=== PATIENT | male | born 1940 | race Caucasian/White ===

== ENCOUNTER 2020-08-21 09:09 | Inpatient (IN) ==
[2020-08-21] MEDS ORDERED: 0.9 % SODIUM CHLORIDE 1,000 ML IV ONE (09:33)
[2020-08-21] MEDS ORDERED: methylPREDNISolone SOD SUCC 125 MG/2 ML VIAL IV ONE (09:33)
[2020-08-21] MEDS ORDERED: TERBUTALINE 1 MG/ML VIAL SQ ONE (09:33)
--- NOTE | 2020-08-21 09:43 | Emergency Department Note ---
SOB HPI General Chief Complaint: Shortness of Breath/Dyspnea Stated Complaint: shortness of breath, possible covid Time Seen by Provider: 08/21/20 09:33 Source: patient Mode of arrival: wheelchair Limitations: no limitations History of Present Illness HPI Narrative: 79-year-old male comes in complaining of worsening shortness of breath x1 week. Denies fever chills nausea vomiting diarrhea trouble urinating. He does have known COPD and quit smoking 10 years ago or so. He does take inhalers as needed and is on apixaban. He has a known heart history with prior FL as well but is denying chest pain today. He is on oxygen 2 L nasal cannula at night but is currently hypoxic with saturations in the 80s-82% on arrival. Complains that he has significant shortness of breath with any exertion at all He was sent over by ABEL Rodrigues over at [facility]. I discussed the case with her prior to his arrival Related Data Home Medications Medication Instructions Recorded Confirmed albuterol sulfate 90 mcg/actuation 2 puff INHALATION QID PRN 06/24/19 05/05/20 aerosol inhaler apixaban 5 mg tablet 5 mg PO BID 06/29/19 05/05/20 multivitamin 1 tab PO QDAY 11/04/19 05/05/20 Previous Rx's Medication Instructions Recorded budesonide 0.5 mg/2 mL suspension 2 ml INHALATION BID #60 ml 12/22/19 for nebulization ipratropium 0.5 mg-albuterol 3 mg 3 ml INHALATION QID #180 ml 12/22/19 (2.5 mg base)/3 mL nebulization soln metformin 500 mg tablet 500 mg PO BID #180 tab 05/05/20 methocarbamol 750 mg tablet 750 mg PO QID PRN #120 tab 06/27/20 gabapentin 300 mg capsule 300 mg PO QID #120 cap 06/29/20 prednisone 5 mg tablet 5 mg PO QDAY #30 tab 06/29/20 atorvastatin 20 mg tablet 20 mg PO QHS #90 tab 07/10/20 sertraline 100 mg tablet 50 mg PO QAM #45 tab 08/01/20 fluticasone fur. 100 mcg-umeclid 1 inh INHALATION Q24H #90 each 08/08/20 62.5 mcg-vilant 25 mcg inhalat.powder losartan 50 mg tablet See Rx Instructions .ROUTE 08/10/20 .COMPLEX #90 tab Allergies Allergy/AdvReac Type Severity Reaction Status Date / Time Amoxicillin [From Augmentin] Allergy Unknown Unknown Verified 05/05/20 08:15 clavulanic acid Allergy Unknown Unknown Verified 05/05/20 08:15 [From Augmentin] tetanus immune globulin Allergy Unknown RASH Verified 05/05/20 08:15 [TETANUS IMMUNE GLOBULIN] Review of Systems ROS ROS Narrative: Narrative: All systems ED: reviewed and negative except as stated. PFSH Narrative Patient History Narrative: Narrative: Medical/Surgical/Family History All Active Problems (Updated 08/21/20 @ 11:40 by Ramy Cardoso MD) Acute exacerbation of chronic obstructive airways disease (Acute) Pneumonia (Acute) Cough (Acute) Weakness (Acute) Acute dyspnea (Acute) Epistaxis (Chronic) History of MRI (Chronic ~06/2013) MRSA pneumonia (Chronic) Peripheral vertigo (Chronic) AAA (abdominal aortic aneurysm) (Chronic) Cerumen impaction (Chronic) Pain in left knee (Chronic) Effusion of left knee (Chronic) Bronchitis (Chronic) Appetite loss (Chronic) No pertinent past surgical history (Chronic) History of [place] (myocardial infarction) (Chronic ~06/2013) Alcoholic (Chronic) Personal history of other disorder of urinary system (Chronic) Hypertension (Chronic) Neck pain (Chronic) Weight loss (Chronic) Fatigue (Chronic) Depression (Chronic) Urinary incontinence (Chronic) COPD (chronic obstructive pulmonary disease) (Chronic) Vertigo (Chronic) History of AAA (abdominal aortic aneurysm) repair (Chronic) Bradycardia (Chronic) Allergic rhinitis (Chronic) Hyperlipidemia (Chronic) Shoulder pain, right (Chronic) Lumbar disc disease (Chronic) Diabetes mellitus (Chronic) Benign essential tremor (Chronic) Medical History AAA (abdominal aortic aneurysm) (Chronic) Alcoholic (Chronic) quit 2012, quit smoking as well Allergic rhinitis (Chronic) Appetite loss (Chronic) Atrial fibrillation (Acute) Benign essential tremor (Chronic) Bradycardia (Chronic) chronic Bronchitis (Chronic) Cerumen impaction (Chronic) COPD (chronic obstructive pulmonary disease) (Chronic) Chest CT 04/26 PFT 04/26 Depression (Chronic) Diabetes mellitus (Chronic) Effusion of left knee (Chronic) Epistaxis (Chronic) Fatigue (Chronic) History of [place] (myocardial infarction) (Chronic ~06/2013) History of MRI (Chronic ~06/2013) previous infacrts History of rectal polyps (Acute) colonoscopy 2020 History of smoking (Chronic ~12/2015) Hyperlipidemia (Chronic) Hypertension (Chronic) Lumbar disc disease (Chronic) MRSA pneumonia (Chronic) Neck pain (Chronic) Pain in left knee (Chronic) Peripheral vertigo (Chronic) Personal history of other disorder of urinary system (Chronic) Shoulder pain, right (Chronic) Urinary incontinence (Chronic) Vertigo (Chronic) Weight loss (Chronic) Surgical History History of AAA (abdominal aortic aneurysm) repair (Chronic) No pertinent past surgical history (Chronic) Family History Brother Diabetes Father Diabetes Social History Smoking Status: Former smoker Alcohol Intake Frequency: former alcohol drinker Exam Narrative Narrative: Narrative: Thin male no acute distress resting. Alert oriented able to answer questions appropriately. No dysarthria or dyspnea with talking. Normocephalic atraumatic. Conjunctive are clear sclerae white nonicteric. No nasal discharge or congestion. Oropharynx pink and moist. Posterior pharynx is clear I do not see any erythema or exudate. Heart is regular rate and rhythm no murmur appreciated. Lungs are clear to auscultation bilaterally without wheezes rales rhonchi or respiratory distress. Abdomen is soft nontender nondistended. No peritoneal signs or guarding. No pedal edema. I do not see any cyanosis anywhere. Normal radial pulse General Limitations: no limitations Course Vital Signs Vital signs: Vital Signs Temperature 98.9 F 08/21/20 09:32 Pulse Rate 60 08/21/20 09:32 Respiratory Rate 22 08/21/20 09:32 Blood Pressure 134/64 08/21/20 09:32 Pulse Oximetry (%) 82 L 08/21/20 09:32 Temperature 98.9 F 08/21/20 09:32 Pulse Rate 58 L 08/21/20 10:02 Respiratory Rate 17 08/21/20 10:02 Blood Pressure 127/59 08/21/20 10:02 Pulse Oximetry (%) 96 08/21/20 10:02 [facility] MDM Narrative Medical decision making narrative: Narrative: COPD exacerbation plus or minus pneumonia or Covid or other respiratory virus or bacteria illness. Additionally he could have heart issues although he is not having chest pain at this time. He is now requiring 4 L of oxygen to keep saturations above 90% so he will require hospitalization Ordered work-up with laboratory ABG chest x-ray. Start treatment with terbutaline subcu Solu-Medrol IV and oxygen therapy. Covid testing ordered- with POC [place] Initial Covid testing was negative. Will order the cephalad test. Chest x-ray showed early infiltrate could be compatible with Covid but not pathognomonic. Left lower may be just bacterial EKG is unrevealing. ABG shows pH of 7.38 PCO2 43 PO2 95 on 4 L nasal cannula Laboratory most consistent with bacterial pneumonia. Will start Levaquin as he is allergic to penicillins. discussed with our hospitalist Dr. Enrico Arteaga (sp?), he will see the patient Lab Data Lab results reviewed: Yes I reviewed the patient's lab results. Result diagrams: 08/21/20 09:37 08/21/20 09:37 Labs: Lab Results 08/21/20 08/21/20 08/21/20 Range/Units 09:37 09:37 09:39 WBC 17.2 H (4.5-11.0) K/mcL RBC 4.24 L (4.50-5.90) M/mcL Hgb 13.6 (13.5-16.5) g/dL Hct 41.0 (41.0-55.0) % MCV 96.7 (80.0-100.0) fL MCH 32.1 (26.0-34.0) pg MCHC 33.2 (31.0-36.0) g/dL RDW 13.7 (11.5-14.5) % Plt Count 196 (140-440) K/mcL MPV 10.6 H (7.4-10.4) fL Neut % (Auto) 80.1 H (38.0-78.0) % Lymph % (Auto) 11.8 L (15.0-49.0) % [place] % (Auto) 7.7 (1.0-12.0) % Eos % (Auto) 0.1 (0.0-7.0) % Baso % (Auto) 0.3 (0.0-2.0) % Lymph # (Auto) 2.03 (1.50-4.80) K/mcL [place] # (Auto) 1.32 H (0.10-0.90) K/mcL Eos # (Auto) 0.01 (0.00-0.70) K/mcL Baso # (Auto) 0.05 (0.00-0.20) K/mcL Absolute Neutrophils 13.82 H (1.80-8.00) K/mcL VBG Lactic Acid 2.0 (0.5-2.0) mmol/L Sodium 139 (133-145) mmol/L Potassium 4.2 (3.3-5.1) mmol/L Chloride 98 (96-108) mmol/L Carbon Dioxide 21 L (22-30) mmol/L Anion Gap 20.0 H (8.0-16.0) BUN 21 (8-23) mg/dL Creatinine 1.2 (0.7-1.2) mg/dL GFR Calculation 56 Glucose 198 H (70-105) mg/dL Calcium 9.4 (8.6-10.4) mg/dL Magnesium 1.5 L (1.6-2.5) mg/dL Total Bilirubin 0.9 (0.1-1.0) mg/dL AST 11 (<40) U/L ALT 15 (<40) U/L Alkaline Phosphatase 73 (39-117) U/L Troponin T (<0.03) ng/mL NT-Pro-B Natriuret Pep 1040.0 H (<450.0) pg/mL Total Protein 7.2 (5.9-8.4) gm/dL Albumin 4.2 (3.2-5.2) gm/dL Globulin 3.0 (2.2-3.7) gm/dL Albumin/Globulin Ratio 1.4 (1.0-2.3) Lipase 23 (7-60) U/L Procalcitonin (<0.10) ng/mL 08/21/20 08/21/20 Range/Units 09:39 09:39 WBC (4.5-11.0) K/mcL RBC (4.50-5.90) M/mcL Hgb (13.5-16.5) g/dL Hct (41.0-55.0) % MCV (80.0-100.0) fL MCH (26.0-34.0) pg MCHC (31.0-36.0) g/dL RDW (11.5-14.5) % Plt Count (140-440) K/mcL MPV (7.4-10.4) fL Neut % (Auto) (38.0-78.0) % Lymph % (Auto) (15.0-49.0) % [place] % (Auto) (1.0-12.0) % Eos % (Auto) (0.0-7.0) % Baso % (Auto) (0.0-2.0) % Lymph # (Auto) (1.50-4.80) K/mcL [place] # (Auto) (0.10-0.90) K/mcL Eos # (Auto) (0.00-0.70) K/mcL Baso # (Auto) (0.00-0.20) K/mcL Absolute Neutrophils (1.80-8.00) K/mcL VBG Lactic Acid (0.5-2.0) mmol/L Sodium (133-145) mmol/L Potassium (3.3-5.1) mmol/L Chloride (96-108) mmol/L Carbon Dioxide (22-30) mmol/L Anion Gap (8.0-16.0) BUN (8-23) mg/dL Creatinine (0.7-1.2) mg/dL GFR Calculation Glucose (70-105) mg/dL Calcium (8.6-10.4) mg/dL Magnesium (1.6-2.5) mg/dL Total Bilirubin (0.1-1.0) mg/dL AST (<40) U/L ALT (<40) U/L Alkaline Phosphatase (39-117) U/L Troponin T 0.01 (<0.03) ng/mL NT-Pro-B Natriuret Pep (<450.0) pg/mL Total Protein (5.9-8.4) gm/dL Albumin (3.2-5.2) gm/dL Globulin (2.2-3.7) gm/dL Albumin/Globulin Ratio (1.0-2.3) Lipase (7-60) U/L Procalcitonin 1.54 H (<0.10) ng/mL Radiology Data Radiology results reviewed: Yes I reviewed the patient's radiology results. Radiology results narrative: Chest x-ray shows early patchy infiltrates versus scar tissue EKG Data EKG #1: EKG attestation: Yes I reviewed and interpreted this EKG. EKG results narrative: EKG shows a rate of 56. Sinus rhythm with 1 PVC notable nonspecific interventricular conduction delay. 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 where he notes that the patient had a right bundle branch block with left anterior fascicular block which could be compatible with today's EKG- Discharge Plan Patient/Caregiver Discharge Instructions Pt seen by BAG MAKER/PA only: No Clinical Impression: Acute exacerbation of chronic obstructive airways disease Pneumonia Qualifiers: Pneumonia type: due to unspecified organism Laterality: left Lung location: lower lobe of lung Qualified Code(s): J18.9 - Pneumonia, unspecified organism Patient Disposition: Xfer As Inpt ([facility]) Condition: Fair Follow up with: Komal Angela ARNP [Primary Care Provider] - Prescriptions: No Action Eliquis 5 mg tablet 5 mg PO BID RF: 0 multivitamin [Daily Multi-Vitamin] Tablet 1 tab PO QDAY RF: 0 metformin 500 mg tablet 500 mg PO BID Qty: 180 RF: 3 ipratropium-albuterol 0.5 mg-3 mg(2.5 mg base)/3 mL solution for nebulization 3 ml INHALATION QID Qty: 180 RF: 0 budesonide 0.5 mg/2 mL suspension for nebulization 2 ml INHALATION BID Qty: 60 RF: 0 methocarbamol 750 mg tablet 750 mg PO QID PRN (Reason: muscle spasm) Qty: 120 RF: 3 prednisone 5 mg tablet 5 mg PO QDAY Qty: 30 RF: 1 gabapentin 300 mg capsule 300 mg PO QID Qty: 120 RF: 1 atorvastatin 20 mg tablet 20 mg PO QHS Qty: 90 RF: 2 sertraline [Zoloft] 100 mg tablet 50 mg PO QAM Qty: 45 RF: 1 fluticasone fur. 100 mcg-umeclid 62.5 mcg-vilant 25 mcg inhalat.powder 100-62.5-25 mcg blister with device 1 inh INHALATION Q24H Qty: 90 RF: 4 losartan 50 mg tablet See Rx Instructions .ROUTE .COMPLEX Qty: 90 RF: 0 albuterol sulfate [ProAir HFA] 90 mcg/actuation HFA aerosol inhaler 2 puff INHALATION QID PRN (Reason: Dyspnea) RF: 0
--- NOTE | 2020-08-21 10:12 | XRay Report ---
CLINICAL INFORMATION: dyspnea COMPARISON: 03/04/2019 plain film and chest CT 04/14/2019 FINDINGS: Moderate centrilobular emphysema changes again noted. Small infiltrate has developed in the left base. Heart size, mediastinum and pulmonary vessels remain normal. IMPRESSION: Small left basilar infiltrate - likely pneumonia. Moderate chronic centrilobular emphysema Interpreted and Authenticated by: Jose Taveras 08/21/20
[2020-08-21 10:42] LABS: Basophils # (Auto) 0.05 K/mcL (0.00-0.20); Basophils % (Auto) 0.3 % (0.0-2.0); Eosinophils # (Auto) 0.01 K/mcL (0.00-0.70); Eosinophils % (Auto) 0.1 % (0.0-7.0); Hemoglobin 13.6 g/dL (13.5-16.5); Lymphocytes # (Auto) 2.03 K/mcL (1.50-4.80); Lymphocytes % (Auto) 11.8 % (15.0-49.0); Mean Cell Volume 96.7 fL (80.0-100.0); Mean Corpuscular HGB Conc 33.2 g/dL (31.0-36.0); Mean Platelet Volume 10.6 fL (7.4-10.4); Monocytes # (Auto) 1.32 K/mcL (0.10-0.90); Monocytes % (Auto) 7.7 % (1.0-12.0); Neutrophils % (Auto) 80.1 % (38.0-78.0); Platelet Count 196 K/mcL (140-440); RBC 4.24 M/mcL (4.50-5.90); Red Cell Distribution Width 13.7 % (11.5-14.5); WBC 17.2 K/mcL (4.5-11.0)
[2020-08-21 11:02] LABS: ALT/SGPT 15 U/L (<40); AST/SGOT 11 U/L (<40); Albumin 4.2 gm/dL (3.2-5.2); Albumin/Globulin Ratio 1.4 (1.0-2.3); Alkaline Phosphatase 73 U/L (39-117); Bilirubin,Total 0.9 mg/dL (0.1-1.0); Blood Urea Nitrogen 21 mg/dL (8-23); Calcium 9.4 mg/dL (8.6-10.4); Carbon Dioxide 21 mmol/L (22-30); Chloride 98 mmol/L (96-108); Glomerular Filtration Rate 56; Glucose 198 mg/dL (70-105)
[2020-08-21] MEDS ORDERED: LEVOFLOXACIN 500 MG/100 ML BAG IV ONE (11:39)
[2020-08-21] MEDS ORDERED: ONDANSETRON 4 MG/2 ML VIAL IV PRN (13:53)
[2020-08-21] MEDS ORDERED: ACETAMINOPHEN 325 MG TABLET PO PRN (14:14)
[2020-08-21] MEDS ORDERED: MAGNESIUM SULFATE 2 GM/50 ML BAG IV ONE (14:19)
[2020-08-21] MEDS ORDERED: ALBUTEROL SULFATE 2.5 MG/3 ML NEBULIZER NEB PRN (14:19)
[2020-08-21] MEDS ORDERED: ONDANSETRON 4 MG ODT TABLET SL PRN (14:19)
[2020-08-21] MEDS: 0.9 % SODIUM CHLORIDE 10 ML SYRINGE IV SCH ×2 (15:00→22:33)
[2020-08-21] MEDS ORDERED: LEVOFLOXACIN 250 MG/50 ML BAG IV ONE (15:30)
--- NOTE | 2020-08-21 15:32 | Internal Med History&Physical ---
HPI History of Present Illness Patient information: Note initiated : 08/21/20 at 3:26 pm Service Date, if different from initiated Date: [] Patient: Hugo Odell 79 y/o M admitted on 08/21/20 for shortness of breath, possible covid. Chief Complaint: [Pneumonia] History of present illness: Mr. Odell is a 79 year old male with a history of heart disease status post CABG, diabetes mellitus, hypertension, COPD with night time oxygen requirement of 2l/min, hypertension, depression, previous CVA who presents to the department for shortness of breath, found to have left lower lobe pneumonia. Patient is requiring 4 L/min had leukocytosis and a chest x- ray showing a left lower lobe infiltrate. The patient be admitted for antibiotic treatment of pneumonia. Review of systems reviewed in detail positive for shortness of breath, cough, fatigue and otherwise negative. Constitutional Constitutional: Present fatigue Cardiovascular Cardiovascular: Absent chest pain and chest pain at rest Respiratory Respiratory: Present cough and dyspnea Gastrointestinal Gastrointestinal: Absent abdominal pain and change in bowel habits Genitourinary Genitourinary: as per HPI Musculoskeletal Musculoskeletal: Present back pain Neurological Neurological: Present as per HPI Psychiatric Psychiatric: Present as per HPI PFSH PFSH All Active Problems (Updated 08/21/20 @ 11:40 by Ramy Cardoso MD) Acute exacerbation of chronic obstructive airways disease (Acute) Pneumonia (Acute) Cough (Acute) Weakness (Acute) Acute dyspnea (Acute) Epistaxis (Chronic) History of MRI (Chronic ~06/2013) MRSA pneumonia (Chronic) Peripheral vertigo (Chronic) AAA (abdominal aortic aneurysm) (Chronic) Cerumen impaction (Chronic) Pain in left knee (Chronic) Effusion of left knee (Chronic) Bronchitis (Chronic) Appetite loss (Chronic) No pertinent past surgical history (Chronic) History of [place] (myocardial infarction) (Chronic ~06/2013) Alcoholic (Chronic) Personal history of other disorder of urinary system (Chronic) Hypertension (Chronic) Neck pain (Chronic) Weight loss (Chronic) Fatigue (Chronic) Depression (Chronic) Urinary incontinence (Chronic) COPD (chronic obstructive pulmonary disease) (Chronic) Vertigo (Chronic) History of AAA (abdominal aortic aneurysm) repair (Chronic) Bradycardia (Chronic) Allergic rhinitis (Chronic) Hyperlipidemia (Chronic) Shoulder pain, right (Chronic) Lumbar disc disease (Chronic) Diabetes mellitus (Chronic) Benign essential tremor (Chronic) Medical History AAA (abdominal aortic aneurysm) (Chronic) Alcoholic (Chronic) quit 2012, quit smoking as well Allergic rhinitis (Chronic) Appetite loss (Chronic) Atrial fibrillation (Acute) Benign essential tremor (Chronic) Bradycardia (Chronic) chronic Bronchitis (Chronic) Cerumen impaction (Chronic) COPD (chronic obstructive pulmonary disease) (Chronic) Chest CT 04/26 PFT 04/26 Depression (Chronic) Diabetes mellitus (Chronic) Effusion of left knee (Chronic) Epistaxis (Chronic) Fatigue (Chronic) History of [place] (myocardial infarction) (Chronic ~06/2013) History of MRI (Chronic ~06/2013) previous infacrts History of rectal polyps (Acute) colonoscopy 2020 History of smoking (Chronic ~12/2015) Hyperlipidemia (Chronic) Hypertension (Chronic) Lumbar disc disease (Chronic) MRSA pneumonia (Chronic) Neck pain (Chronic) Pain in left knee (Chronic) Peripheral vertigo (Chronic) Personal history of other disorder of urinary system (Chronic) Shoulder pain, right (Chronic) Urinary incontinence (Chronic) Vertigo (Chronic) Weight loss (Chronic) Surgical History History of AAA (abdominal aortic aneurysm) repair (Chronic) No pertinent past surgical history (Chronic) Family History Brother Diabetes Father Diabetes Social History household members: alone housing: house lives independently: Yes marital status: single occupational status: retired smoking status: Former smoker quit date: 09/08/03 alcohol intake frequency: former alcohol drinker MEDS/ALLERGIES Home Medications and Allergies Home Medications Medication Instructions Recorded Confirmed Type albuterol sulfate 90 mcg/actuation 2 puff INHALATION QID PRN 06/24/19 05/05/20 History aerosol inhaler apixaban 5 mg tablet 5 mg PO BID 06/29/19 05/05/20 History multivitamin 1 tab PO QDAY 11/04/19 05/05/20 History budesonide 0.5 mg/2 mL suspension 2 ml INHALATION BID #60 ml 12/22/19 05/05/20 Rx for nebulization ipratropium 0.5 mg-albuterol 3 mg 3 ml INHALATION QID #180 ml 12/22/19 05/05/20 Rx (2.5 mg base)/3 mL nebulization soln metformin 500 mg tablet 500 mg PO BID #180 tab 05/05/20 05/05/20 Rx methocarbamol 750 mg tablet 750 mg PO QID PRN #120 tab 06/27/20 Rx gabapentin 300 mg capsule 300 mg PO QID #120 cap 06/29/20 Rx prednisone 5 mg tablet 5 mg PO QDAY #30 tab 06/29/20 Rx atorvastatin 20 mg tablet 20 mg PO QHS #90 tab 07/10/20 Rx sertraline 100 mg tablet 50 mg PO QAM #45 tab 08/01/20 Rx fluticasone fur. 100 mcg-umeclid 1 inh INHALATION Q24H #90 each 08/08/20 Rx 62.5 mcg-vilant 25 mcg inhalat.powder losartan 50 mg tablet See Rx Instructions .ROUTE 08/10/20 Rx .COMPLEX #90 tab Allergies Allergy/AdvReac Type Severity Reaction Status Date / Time Amoxicillin [From Augmentin] Allergy Unknown Unknown Verified 05/05/20 08:15 clavulanic acid Allergy Unknown Unknown Verified 05/05/20 08:15 [From Augmentin] tetanus immune globulin Allergy Unknown RASH Verified 05/05/20 08:15 [TETANUS IMMUNE GLOBULIN] EXAM Constitutional Vitals: Temp Pulse Resp BP Pulse Ox 97.5 F 59 L 18 155/82 92 08/21/20 15:20 08/21/20 13:01 08/21/20 15:20 08/21/20 15:20 08/21/20 15:20 Exam: Appears malnourished Head Head exam: Present atraumatic and normal inspection Eye Eye exam: Present normal appearance; Absent scleral icterus Neck Neck exam: Present full ROM; Absent lymphadenopathy Respiratory Respiratory exam: Present rales and wheezes; Absent accessory muscle use Cardiovascular Cardiovascular exam: Present normal rate and rhythm GI/Abdominal GI/Abdominal exam: Present soft; Absent distended and tenderness Extremities Exam Extremities exam: Present full ROM; Absent joint swelling and tenderness Neurological Exam Neurological exam: Present alert and CN II-XII intact Psychiatric Psychiatric exam: Present normal mood; Absent agitated and anxious Skin Additional comments: healing wound on left hand, bruises on both upper extremities. DATA Data Completed and Pending Labs: Labs from last 24 hours 08/21/20 08/21/20 08/21/20 09:39 09:39 09:39 WBC RBC Hgb Hct MCV MCH MCHC RDW Plt Count MPV Neut % (Auto) Lymph % (Auto) [place] % (Auto) Eos % (Auto) Baso % (Auto) Lymph # (Auto) [place] # (Auto) Eos # (Auto) Baso # (Auto) Absolute Neutrophils VBG Lactic Acid 2.0 Sodium Potassium Chloride Carbon Dioxide Anion Gap BUN Creatinine GFR Calculation Glucose Calcium Magnesium Total Bilirubin AST ALT Alkaline Phosphatase Troponin T 0.01 NT-Pro-B Natriuret Pep Total Protein Albumin Globulin Albumin/Globulin Ratio Lipase Procalcitonin 1.54 H 08/21/20 08/21/20 09:37 09:37 WBC 17.2 H RBC 4.24 L Hgb 13.6 Hct 41.0 MCV 96.7 MCH 32.1 MCHC 33.2 RDW 13.7 Plt Count 196 MPV 10.6 H Neut % (Auto) 80.1 H Lymph % (Auto) 11.8 L [place] % (Auto) 7.7 Eos % (Auto) 0.1 Baso % (Auto) 0.3 Lymph # (Auto) 2.03 [place] # (Auto) 1.32 H Eos # (Auto) 0.01 Baso # (Auto) 0.05 Absolute Neutrophils 13.82 H VBG Lactic Acid Sodium 139 Potassium 4.2 Chloride 98 Carbon Dioxide 21 L Anion Gap 20.0 H BUN 21 Creatinine 1.2 GFR Calculation 56 Glucose 198 H Calcium 9.4 Magnesium 1.5 L Total Bilirubin 0.9 AST 11 ALT 15 Alkaline Phosphatase 73 Troponin T NT-Pro-B Natriuret Pep 1040.0 H Total Protein 7.2 Albumin 4.2 Globulin 3.0 Albumin/Globulin Ratio 1.4 Lipase 23 Procalcitonin A/P Narrative A/P Narrative: Assessment: 79-year-old male with a history of CAD diabetes mellitus, COPD with 2/min nocturnal oxygen requirement, atrial fibrillation, hypertension, depression admitted for left lower lobe pneumonia. #Community-acquired pneumonia #Acute on chronic hypoxic respiratory failure #Penicillin allergy Plan: Levofloxacin IV (renally dosed) for community acquired pneumonia, sputum culture, oxygen supplementation as needed, monitor respiratory status. Follow WBC and SARS-CoV-2 PCR result. MRSA nasal PCR. #COPD exacerbation -Solu-Medrol IV twice daily, scheduled duo nebs, albuterol nebs prn. Hold home bronchodilators and prednisone. #Anion gap metabolic acidosis - will likely improve with IV fluid, follow. #High normal creatinine - monitor with IV fluid, avoid nephrotoxic meds. #Hypertension - Hold home losartan for now, likely resume tomorrow or tonight. #Hx of atrial flutter - currently in sinus rhythm, continue apixaban BID. #CAD s/p CABG - Continue Atorvastatin, on Apixaban but not an antiplatelet. #Diabetes mellitus type II - Lantus 10 units pm, correction humalog SSI-medium, hold home metformin. Follow glucost POCT-may need higher insulin doses b/c solumedrol. # Depression - ciontinue home Sertraline #DVT prophylaxis - on Apixaban Time Spent With Patient Time: Total time spent is greater than 50% in coordination of care (as documented) at patient's floor/unit and/or counseling patient: Total time spent with greater than 50% in coordination of care (as documented) at patient's floor/unit and/or counseling patient:: Greater than 35 minutes
[2020-08-21] MEDS ORDERED: DEXTROSE 31 GM ORAL.SUSP PO PRN (15:47)
[2020-08-21] MEDS ORDERED: DEXTROSE 50% 50 ML VIAL IV PRN (15:47)
[2020-08-21] MEDS ORDERED: 0.9 % SODIUM CHLORIDE 500 ML IV ONE (15:57)
[2020-08-21] MEDS: INSULIN LISPRO 1 UNIT/0.01 ML UNIT SQ SCH ×3 (16:58→23:23)
[2020-08-21] MEDS: IPRATROPIUM/ALBUTEROL 3 ML AMPUL.NEB NEB SCH (19:18)
[2020-08-21] MEDS ORDERED: INSULIN GLARGINE, HUMAN 1 UNIT/0.01 ML SQ SCH (21:00)
[2020-08-21] MEDS: GABAPENTIN 300 MG CAPSULE PO SCH (22:32)
[2020-08-21] MEDS: ATORVASTATIN 20 MG TABLET PO SCH (22:32)
[2020-08-21] MEDS: SENNOSIDES 1 TABLET PO SCH (22:32)
[2020-08-21] MEDS: APIXABAN 5 MG TABLET PO SCH (22:32)
[2020-08-21] MEDS: methylPREDNISolone SOD SUCC 125 MG/2 ML VIAL IV SCH (22:33)
[2020-08-21] MEDS: INSULIN GLARGINE, HUMAN 1 UNIT/0.01 ML SQ SCH ×2 (22:57→23:23)
[2020-08-22] MEDS: IPRATROPIUM/ALBUTEROL 3 ML AMPUL.NEB NEB SCH ×4 (01:51→18:31)
[2020-08-22] MEDS: 0.9 % SODIUM CHLORIDE 10 ML SYRINGE IV SCH ×3 (06:01→21:27)
[2020-08-22 07:28] LABS: ALT/SGPT 15 U/L (<40); AST/SGOT 11 U/L (<40); Albumin/Globulin Ratio 1.4 (1.0-2.3); Alkaline Phosphatase 73 U/L (39-117); Bilirubin,Direct < 0.2 mg/dL (<0.3); Bilirubin,Total 0.4 mg/dL (0.1-1.0); Blood Urea Nitrogen 22 mg/dL (8-23); Calcium 8.8 mg/dL (8.6-10.4); Carbon Dioxide 21 mmol/L (22-30); Chloride 98 mmol/L (96-108); Globulin 2.8 gm/dL (2.2-3.7); Glomerular Filtration Rate 56; Glucose 238 mg/dL (70-105); Lactate Dehydrogenase 188 U/L (135-225); Phosphorous 3.9 mg/dL (2.5-4.5); Triglycerides 63 mg/dL (<150); Uric Acid 4.6 mg/dL (2.5-8.0)
[2020-08-22] MEDS: INSULIN LISPRO 1 UNIT/0.01 ML UNIT SQ SCH ×5 (08:12→21:26)
[2020-08-22 08:21] LABS: Hematocrit 38.4 % (41.0-55.0); Hemoglobin 12.3 g/dL (13.5-16.5); Lymphocytes % 4 % (15-49); Mean Cell Volume 98.2 fL (80.0-100.0); Mean Platelet Volume 10.1 fL (7.4-10.4); Monocytes % (Manual) 4 % (1-12); Platelet Count 180 K/mcL (140-440); Platelet Estimate NORMAL (Normal); RBC 3.91 M/mcL (4.50-5.90); RBC Morphology NORMAL (Normal); Red Cell Distribution Width 13.4 % (11.5-14.5); Segmented Neutrophils % 92 % (38-78); WBC 10.5 K/mcL (4.5-11.0)
[2020-08-22] MEDS ORDERED: DEXTROSE 31 GM ORAL.SUSP PO PRN (08:35)
[2020-08-22] MEDS ORDERED: DEXTROSE 50% 50 ML VIAL IV PRN (08:35)
[2020-08-22] MEDS: GABAPENTIN 300 MG CAPSULE PO SCH ×3 (08:40→21:25)
[2020-08-22] MEDS: APIXABAN 5 MG TABLET PO SCH ×2 (08:40→21:25)
[2020-08-22] MEDS: SERTRALINE 50 MG TABLET PO SCH (08:40)
[2020-08-22] MEDS: SENNOSIDES 1 TABLET PO SCH ×2 (08:40→21:27)
[2020-08-22] MEDS: methylPREDNISolone SOD SUCC 125 MG/2 ML VIAL IV SCH ×2 (08:41→21:25)
[2020-08-22] MEDS ORDERED: ENOXAPARIN 40 MG/0.4 ML SYRINGE SQ SCH (09:00)
--- NOTE | 2020-08-22 11:36 | Internal Med Progress Note ---
SUBJECTIVE Subjective Patient information: Note initiated : 08/22/20 at 11:26 am Service Date, if different from initiated Date: [] Patient: Hugo Odell 79 y/o M admitted on 08/21/20 for shortness of breath, possible covid. Chief Complaint: [shortness of breath] Interval history: History of present illness: Mr. Odell is a 79 year old male with a history of heart disease status post CABG, diabetes mellitus, hypertension, COPD with night time oxygen requirement of 2l/min, hypertension, depression, previous CVA who presents to the department for shortness of breath, found to have left lower lobe pneumonia. Patient was requiring 4 L/min at admission had leukocytosis and a chest x-ray showing a left lower lobe infiltrate. The patient was started on levofloxacin for pneumonia due to penicillin allergies. 08/22-much improved respiratory status, on 2 l/min oxygen. increased lantus to 15 units pm, continue SSI-med humalog. PT and OT consulted. Constitutional Vitals: Vital Signs Temp Pulse Resp BP Pulse Ox 98 F 71 20 110/71 95 08/22/20 07:59 08/22/20 07:08 08/22/20 08:00 08/22/20 07:59 08/22/20 08:00 Period Temp Pulse Resp BP Sys/Can Pulse Ox Last 24 Hr 97.5 F-98.0 F 52-71 14-22 110-163/58-82 91-96 Intake and Output 08/21/20 08/22/20 08/22/20 21:59 05:59 13:59 Intake Total 100 600 Balance 100 600 Weight 61.825 kg Intake & Output: Intake & Output 08/21/20 08/22/20 08/22/20 21:59 05:59 13:59 Intake Total 100 600 Balance 100 600 Weight 61.825 kg Intake: IV 100 600 Sodium Chloride 0.9% 500 ml @ 500 Wide Open IV BOLUS ONE Rx#: [id number] Other: Meal Dinner Percent of Meal Consumed 100% Stool Size Small Stool Color Brown Stool Consistency Soft # Bowel Movements 1 Head Head exam: Present atraumatic and normal inspection Eye Eye exam: Present normal appearance Neck Neck exam: Present full ROM Respiratory Respiratory exam: Present rales; Absent accessory muscle use and respiratory distress Cardiovascular Cardiovascular exam: Present normal rate and rhythm GI/Abdominal GI/Abdominal exam: Present soft; Absent tenderness Extremities Exam Extremities exam: Present full ROM Neurological Exam Neurological exam: Present CN II-XII intact and oriented X3 Psychiatric Psychiatric exam: Present normal affect and normal mood Skin Skin exam: Present normal color and warm OBJ DATA Labs CBC & Chem 7: 08/22/20 06:00 08/22/20 06:00 Labs: Abnormal Lab Results 08/22/20 08/22/20 08/21/20 06:00 06:00 09:39 WBC RBC 3.91 L Hgb 12.3 L Hct 38.4 L MPV Neut % (Auto) Lymph % (Auto) [place] # (Auto) Seg Neutrophils % 92 H Lymphocytes % 4 L Absolute Neutrophils Carbon Dioxide 21 L Anion Gap 19.0 H Glucose 238 H Magnesium NT-Pro-B Natriuret Pep Procalcitonin 1.54 H 08/21/20 08/21/20 09:37 09:37 WBC 17.2 H RBC 4.24 L Hgb Hct MPV 10.6 H Neut % (Auto) 80.1 H Lymph % (Auto) 11.8 L [place] # (Auto) 1.32 H Seg Neutrophils % Lymphocytes % Absolute Neutrophils 13.82 H Carbon Dioxide 21 L Anion Gap 20.0 H Glucose 198 H Magnesium 1.5 L NT-Pro-B Natriuret Pep 1040.0 H Procalcitonin Meds: Medications Acetaminophen (Tylenol) 650 mg PO Q6HP PRN; Protocol PRN Reason: Per Pain Protocol/Fever > 101 Albuterol Sulfate (Ventolin) 2.5 mg NEB Q2HP PRN PRN Reason: Shortness Of Breath Albuterol/Ipratropium (Duoneb) 3 ml NEB Q6HRT [facility] Last Admin: 08/22/20 07:08 Dose: 3 ml Documented by: Apixaban (Eliquis) 5 mg PO BID [facility] Last Admin: 08/22/20 08:40 Dose: 5 mg Documented by: Atorvastatin Calcium (Lipitor) 20 mg PO HS [facility] Last Admin: 08/21/20 22:32 Dose: 20 mg Documented by: Dextrose (Dextrose 50%) 0 ml IV UD PRN PRN Reason: Hypoglycemia Dextrose (Dextrose 50%) 0 ml IV UD PRN PRN Reason: Hypoglycemia Diagnostic Test (Pha) (Accu-Chek) 1 each FS ACHS [facility] Last Admin: 08/22/20 08:12 Dose: 1 each Documented by: Diagnostic Test (Pha) (Accu-Chek) 1 each [facility] Gabapentin (Neurontin) 300 mg PO TID [facility] Last Admin: 08/22/20 08:40 Dose: 300 mg Documented by: Glucose (Insta-Glucose) 15 gm PO PRN PRN PRN Reason: Hypoglycemia Glucose (Insta-Glucose) 15 gm PO PRN PRN PRN Reason: Hypoglycemia Levofloxacin (Levaquin) 750 mg in 150 mls @ 100 mls/hr IV Q48 [facility]; Protocol Insulin Glargine (Lantus) 15 unit SQ [facility] Insulin Human Lispro (Humalog) 0 unit SQ [facility]; Protocol Last Admin: 08/22/20 08:12 Dose: 6 units Documented by: Methylprednisolone Sodium Succinate (Solu-Medrol) 62.5 mg IV Q12 [facility] Last Admin: 08/22/20 08:41 Dose: 62.5 mg Documented by: Ondansetron HCl (Zofran) 4 mg IV Q6HP PRN PRN Reason: Nausea And Vomiting Ondansetron HCl (Zofran Odt) 4 mg SL Q6HP PRN PRN Reason: Nausea And Vomiting Senna (Senokot) 2 tab PO BID [facility] Last Admin: 08/22/20 08:40 Dose: 2 tab Documented by: Sertraline HCl (Zoloft) 50 mg PO DAILY [facility] Last Admin: 08/22/20 08:40 Dose: 50 mg Documented by: Sodium Chloride (Saline Flush) 10 ml IV Q8 [facility] Last Admin: 08/22/20 06:01 Dose: 10 ml Documented by: A/P Narrative A/P Narrative: Assessment: 79-year-old male with a history of CAD diabetes mellitus, COPD with 2/min nocturnal oxygen requirement, atrial fibrillation, hypertension, depression admitted for acute hypoxic respiratory failure secondary to left lower lobe pneumonia. #Community-acquired pneumonia #Acute on chronic hypoxic respiratory failure #Penicillin allergy Plan: Levofloxacin IV (renally dosed) for community acquired pneumonia, sputum culture if able to aquire, oxygen supplementation as needed, monitor respiratory status. Improving WBC, negative SARS-CoV-2 PCR and respiratory panel. MRSA nasal PCR negative. #COPD exacerbation -continue Solu-Medrol IV twice daily-likely transition to prednisone soon, scheduled duo nebs, albuterol nebs prn. Hold home bronchodilators and prednisone. #Anion gap metabolic acidosis - improved, will likely continue to improve- follow. #High normal creatinine - stable, avoid nephrotoxic meds. #Hypertension - stable blood pressure, holding home losartan for now. #Hx of atrial flutter - currently in sinus rhythm, continue apixaban BID. #CAD s/p CABG - Continue Atorvastatin, on Apixaban but not an antiplatelet. #Diabetes mellitus type II - increased Lantus 10->15 units pm, correction humalog SSI-medium, consistent carb diet, holding home metformin while inpatient. # Depression - continue home Sertraline. #DVT prophylaxis - on Apixaban Time Spent With Patient Time: Total time spent is greater than 50% in coordination of care (as documented) at patient's floor/unit and/or counseling patient: Total time spent with greater than 50% in coordination of care (as documented) at patient's floor/unit and/or counseling patient:: 25 - 35 minutes QUALITY VTE Deep Vein Thrombosis/Pulmonary Embolism Present on Admission: No
[2020-08-22] MEDS ORDERED: METHOCARBAMOL 750 MG TABLET PO PRN (14:59)
[2020-08-22] MEDS ORDERED: INSULIN GLARGINE, HUMAN 1 UNIT/0.01 ML SQ SCH (21:00)
[2020-08-22] MEDS: ATORVASTATIN 20 MG TABLET PO SCH (21:25)
[2020-08-23] MEDS: IPRATROPIUM/ALBUTEROL 3 ML AMPUL.NEB NEB SCH ×2 (01:49→08:07)
[2020-08-23] MEDS: 0.9 % SODIUM CHLORIDE 10 ML SYRINGE IV SCH (05:42)
[2020-08-23] MEDS: INSULIN LISPRO 1 UNIT/0.01 ML UNIT SQ SCH ×2 (07:02→11:31)
[2020-08-23] MEDS ORDERED: LEVOFLOXACIN 750 MG/150 ML BAG IV SCH (09:00)
[2020-08-23] MEDS ORDERED: MULTIVIT,THER IRON,CA,FA & MIN 1 TABLET PO SCH (09:00)
[2020-08-23] MEDS: GABAPENTIN 300 MG CAPSULE PO SCH (09:11)
[2020-08-23] MEDS: APIXABAN 5 MG TABLET PO SCH (09:11)
[2020-08-23] MEDS: methylPREDNISolone SOD SUCC 125 MG/2 ML VIAL IV SCH (09:11)
[2020-08-23] MEDS: SERTRALINE 50 MG TABLET PO SCH (09:11)
[2020-08-23] MEDS: SENNOSIDES 1 TABLET PO SCH (09:11)
[2020-08-23 09:20] LABS: Blood Urea Nitrogen 27 mg/dL (8-23); Calcium 8.9 mg/dL (8.6-10.4); Carbon Dioxide 28 mmol/L (22-30); Chloride 101 mmol/L (96-108); Glomerular Filtration Rate 70; Glucose 182 mg/dL (70-105)
--- NOTE | 2020-08-23 10:41 | Discharge Summary ---
Discharge Provider Provider Patient information: Note initiated : 08/23/20 at 10:41 am Service Date, if different from initiated Date: [] Patient: Hugo Odell 79 y/o M admitted on 08/21/20 for shortness of breath, possible covid. Chief Complaint: [shortness of breath] Date of admission: 08/21/20 14:02 Discharge date: 08/23/20 Primary care physician: Komal Angela Consults: 08/21/20 12:01 Consult to Physician [CONS] Stat Comment: Consulting Provider: Enrico Morgan Reason For Exam: Physician to Consult Discharge Meds Discharge Medications Home Medications albuterol sulfate 90 mcg/actuation aerosol inhaler 2 puff INHALATION QID PRN 06/24/19 [History Confirmed 05/05/20 Last Taken Unknown] apixaban 5 mg tablet 5 mg PO BID 06/29/19 [History Confirmed 08/22/20 Last Taken Unknown] budesonide 0.5 mg/2 mL suspension for nebulization 2 ml INHALATION BID #60 ml 12/22/19 [Rx Confirmed 08/22/20 Last Taken Unknown] ipratropium 0.5 mg-albuterol 3 mg (2.5 mg base)/3 mL nebulization soln 3 ml INHALATION QID #180 ml 12/22/19 [Rx Confirmed 08/22/20 Last Taken Unknown] metformin 500 mg tablet 500 mg PO BID #180 tab 05/05/20 [Rx Confirmed 08/21/20 Last Taken Unknown] methocarbamol 750 mg tablet 750 mg PO QID PRN #120 tab 06/27/20 [Rx Confirmed 08/21/20 Last Taken Unknown] gabapentin 300 mg capsule 300 mg PO QID #120 cap 06/29/20 [Rx Confirmed 08/21/20 Last Taken Unknown] prednisone 5 mg tablet 5 mg PO QDAY #30 tab 06/29/20 [Rx Confirmed 08/21/20 Last Taken Unknown] atorvastatin 20 mg tablet 20 mg PO QHS #90 tab 07/10/20 [Rx Confirmed 08/21/20 Last Taken Unknown] sertraline 100 mg tablet 50 mg PO QAM #45 tab 08/01/20 [Rx Confirmed 08/21/20 Last Taken Unknown] fluticasone fur. 100 mcg-umeclid 62.5 mcg-vilant 25 mcg inhalat.powder 1 inh INHALATION Q24H #90 each 08/08/20 [Rx Confirmed 08/22/20 Last Taken Unknown] losartan 50 mg PO DAILY 08/21/20 [History Confirmed 08/21/20 Last Taken Unknown] levofloxacin 750 mg PO Q48H 4 Days #2 tab 08/23/20 [Rx Last Taken Unknown] oewngzal-rjbe-RZ-calcium-mins [Thera M Plus (ferrous fumarat)] 1 tab PO DAILY 60 Days #60 tab 08/23/20 [Rx Last Taken Unknown] prednisone 40 mg PO QDAY 3 Days #6 tab 08/23/20 [Rx Last Taken Unknown] COURSE Hospital Course Hospital course: Mr. Odell is a 79 year old male with a history of heart disease status post CABG, diabetes mellitus, hypertension, COPD with night time oxygen requirement of 2l/min, hypertension, depression, previous CVA who presents to the department for shortness of breath, found to have left lower lobe pneumonia. Patient was requiring 4 L/min at admission had leukocytosis and a chest x-ray showing a left lower lobe infiltrate. The patient was started on levofloxacin for pneumonia due to penicillin allergies. He was also treated for a COPD exacerbation with systemic steroids and scheduled short acting bronchodilators. Over the next couple days the patient's oxygenation improved to near his baseline. Prior to discharge a home oxygen evaluation showed that he continued to require about 2 l/min oxygen with ambulation. He was discharged to home with home health. Discharge diagnosis: pneumonia Secondary discharge diagnosis: COPD exacerbation Time Spent with Patient Time attestation: Total time spent providing and/or coordinating discharge services: Time spent: Greater than 30 minutes EXAM Constitutional Vitals: Temp Pulse Resp BP Pulse Ox 97.4 F 72 16 114/68 97 08/23/20 08:00 08/23/20 08:08 08/23/20 08:08 08/23/20 08:00 08/23/20 08:08 Head Head exam: Present atraumatic and normal inspection Neck Neck exam: Present full ROM Respiratory Respiratory exam: Present rales; Absent accessory muscle use and wheezes Cardiovascular Cardiovascular exam: Present normal rate and rhythm GI/Abdominal GI/Abdominal exam: Present soft; Absent tenderness Extremities Exam Extremities exam: Present full ROM; Absent pedal edema Neurological Exam Neurological exam: Present alert and CN II-XII intact Psychiatric Psychiatric exam: Present normal affect and normal mood Skin Skin exam: Present normal color and warm Discharge Data Data Completed and Pending Labs on day of discharge: Labs from last 24 hours 08/23/20 07:48 Sodium 139 Potassium 4.2 Chloride 101 Carbon Dioxide 28 Anion Gap 10.0 BUN 27 H Creatinine 1.0 GFR Calculation 70 Glucose 182 H Calcium 8.9 Discharge Plan Patient/Caregiver Discharge Instructions Activity: as per physical therapy Diet: Consistent Carbohydrate Instructions: Prednisone (By mouth), Levofloxacin (By mouth), Community Acquired Pneumonia (GEN) Activity Restrictions/Additional Instructions: [employer] will contact you after discharge if any questions. Continue with a consistent carbohydrate diet, increase activity per [employer] [facility] Follow up with your Primary Care Physician as suggested (see scheduled appt.) This discharge packet is provided to you to help keep you informed about your care. We want to ensure you get everything you need when you go home. You will also be receiving a call from us in a few days to follow up with you and see how you are doing since your discharge. This gives us a chance to listen to any concerns you maybe experiencing since you were discharged or any additional needs you may have, as well as providing us feedback on your care experience. We strive to always provide excellent care and thank you for your feedback and for choosing [facility]. Prescriptions: New levofloxacin 750 mg tablet 750 mg PO Q48H 4 Days Qty: 2 RF: 0 prednisone 20 mg tablet 40 mg PO QDAY 3 Days Qty: 6 RF: 0 Thera M Plus (ferrous fumarat) 9 mg iron-400 mcg Tablet 1 tab PO DAILY 60 Days Qty: 60 RF: 0 Continued Eliquis 5 mg tablet 5 mg PO BID RF: 0 metformin 500 mg tablet 500 mg PO BID Qty: 180 RF: 3 ipratropium-albuterol 0.5 mg-3 mg(2.5 mg base)/3 mL solution for nebulization 3 ml INHALATION QID Qty: 180 RF: 0 budesonide 0.5 mg/2 mL suspension for nebulization 2 ml INHALATION BID Qty: 60 RF: 0 methocarbamol 750 mg tablet 750 mg PO QID PRN (Reason: muscle spasm) Qty: 120 RF: 3 prednisone 5 mg tablet 5 mg PO QDAY Qty: 30 RF: 1 gabapentin 300 mg capsule 300 mg PO QID Qty: 120 RF: 1 atorvastatin 20 mg tablet 20 mg PO QHS Qty: 90 RF: 2 sertraline [Zoloft] 100 mg tablet 50 mg PO QAM Qty: 45 RF: 1 fluticasone fur. 100 mcg-umeclid 62.5 mcg-vilant 25 mcg inhalat.powder 100-62.5-25 mcg blister with device 1 inh INHALATION Q24H Qty: 90 RF: 4 albuterol sulfate [ProAir HFA] 90 mcg/actuation HFA aerosol inhaler 2 puff INHALATION QID PRN (Reason: Dyspnea) RF: 0 losartan 50 mg tablet 50 mg PO DAILY RF: 0 Follow Up Plan Follow up with: Komal Angela ARNP [Primary Care Provider] - 08/30/20 3:45 pm Patient Disposition: Home Health Service Prognosis: Fair Rehab Potential: Fair Overall status at discharge: patient is progressing back to baseline Discharge Date/Time: 08/23/20 13:35 Discharge Orders: Discharge Order (Routine); Ordered 08/23/20 Ordered By: Enrico CURRY VTE Deep Vein Thrombosis/Pulmonary Embolism Present on Admission: No
== END 2020-08-23 13:35 | disposition home health service (06) | DRG 190 ==
LOC: ED 09:09 → ICU 14:02
PROVIDERS: ADMIT Internal Medicine; ATTEND Internal Medicine

== ENCOUNTER 2023-10-24 09:04 | Inpatient (IN) ==
[2023-10-24] MEDS ORDERED: IOPAMIDOL 100 ML BOTTLE IV ONE (09:05)
[2023-10-24 10:09] LABS: Basophils # (Auto) 0.04 K/mcL (0.00-0.30); Basophils % (Auto) 0.5 % (0.0-2.0); Eosinophils # (Auto) 0.01 K/mcL (0.00-0.70); Eosinophils % (Auto) 0.1 % (0.0-7.0); Hematocrit 38.6 % (40.1-51.0); Hemoglobin 11.9 g/dL (13.7-17.5); Lymphocytes # (Auto) 3.01 K/mcL (1.50-4.80); Lymphocytes % (Auto) 39.8 % (15.5-49.0); Mean Cell Volume 94.1 fL (80.0-100.0); Mean Corpuscular HGB Conc 30.8 g/dL (31.0-36.0); Mean Platelet Volume 11.5 fL (8.8-12.5); Monocytes # (Auto) 0.76 K/mcL (0.10-0.90); Monocytes % (Auto) 10.1 % (1.0-12.0); Neutrophils % (Auto) 49.4 % (38.0-78.0); Platelet Count 67 K/mcL (140-440); Red Cell Distribution Width 14.1 % (11.5-14.5); WBC 7.6 K/mcL (4.5-11.0)
[2023-10-24] MEDS: 0.9 % SODIUM CHLORIDE 1,000 ML IV ONE ×2 (10:13→11:45)
[2023-10-24 10:17] LABS: ALT/SGPT 14 U/L (<40); AST/SGOT 26 U/L (<40); Albumin 3.5 gm/dL (3.2-5.2); Albumin/Globulin Ratio 1.2 (1.0-2.3); Alkaline Phosphatase 65 U/L (39-117); Bilirubin,Total 0.4 mg/dL (0.1-1.0); Blood Urea Nitrogen 28 mg/dL (8-23); Calcium 8.6 mg/dL (8.6-10.4); Carbon Dioxide 28 mmol/L (22-30); Chloride 103 mmol/L (96-108); Glomerular Filtration Rate 46; Glucose 82 mg/dL (70-105)
[2023-10-24] MEDS: CEFEPIME 1 GM VIAL IV ONE (10:18)
[2023-10-24] MEDS: ACYCLOVIR SODIUM 500 MG VIAL IV ONE (10:18)
[2023-10-24] MEDS: valACYclovir 500 MG TABLET PO SCH (10:33)
[2023-10-24] MEDS: VANCOMYCIN 1,000 MG in 0.9 % SODIUM CHLORIDE 250 ML IV SCH (10:33)
[2023-10-24] MEDS: VANCOMYCIN PER PHARMACY IV ONE (10:33)
[2023-10-24] MEDS: ACYCLOVIR 200 MG/5 ML PO ONE (10:33)
[2023-10-24 11:33] LABS: Appearance,Urine Clear (Clear); Bacteria,Urine Mod /hpf (0); Bilirubin,Urine Negative (Negative); Color,Urine Yellow; Culture Indicated,Urine Yes; Glucose,Urine (UA) Negative (Negative); Ketones,Urine Trace mg/dL (Negative); Leukocyte Esterase,Urine Moderate /uL (Negative); Nitrate,Urine Negative (Negative); Protein,Urine 30 mg/dL (Negative); Urine Blood Large ery/mcL (Negative); Urine Hyaline Cast 3 /lph (0-2); Urine RBC 57 /hpf (0-3); Urine Squamous Epithelial Cell 1 /hpf (0-4); Urine WBC 17 /hpf (0-4); Urobilinogen,Urine Normal
[2023-10-24] MEDS ORDERED: ONDANSETRON 4 MG/2 ML VIAL IV PRN (16:48)
[2023-10-24] MEDS ORDERED: METOPROLOL TARTRATE 5 MG/5 ML VIAL IV PRN (16:48)
[2023-10-24] MEDS ORDERED: POTASSIUM CHLORIDE 20 MEQ PACKET PO PRN (16:48)
[2023-10-24] MEDS ORDERED: IPRATROPIUM/ALBUTEROL 3 ML AMPUL.NEB NEB PRN (16:48)
[2023-10-24] MEDS ORDERED: ONDANSETRON 4 MG ODT TABLET SL PRN (16:48)
[2023-10-24] MEDS ORDERED: POLYETHYLENE GLYCOL 3350 17 GM PACKET PO PRN (16:48)
[2023-10-24] MEDS ORDERED: MAGNESIUM SULFATE 2 GM/50 ML BAG IV PRN (16:48)
[2023-10-24] MEDS ORDERED: DEXTROSE 50% 50 ML VIAL IV PRN (16:48)
[2023-10-24] MEDS ORDERED: DEXTROSE 31 GM ORAL.SUSP PO PRN (16:48)
[2023-10-24] MEDS ORDERED: VANCOMYCIN PER PHARMACY IV SCH (16:48)
[2023-10-24] MEDS ORDERED: BISACODYL 10 MG SUPP.RECT PR PRN (16:48)
[2023-10-24] MEDS: cefTRIAXone 2 GM in DEXTROSE 5% IN WATER 50 ML IV SCH (17:26)
[2023-10-24] MEDS: INSULIN LISPRO 1 UNIT/0.01 ML UNIT SQ SCH (17:26)
[2023-10-24] MEDS ORDERED: ACYCLOVIR SODIUM 500 MG VIAL IV SCH (20:00)
[2023-10-24] MEDS: DOCUSATE SODIUM 100 MG CAPSULE PO SCH (21:49)
[2023-10-24] MEDS: CYANOCOBALAMIN (VITAMIN B-12) 500 MCG TABLET PO SCH (21:49)
[2023-10-24] MEDS: SENNOSIDES/DOCUSATE SODIUM 1 TAB TABLET PO SCH (21:49)
[2023-10-24] MEDS: SODIUM CHLORIDE 0.9% IV SCH (21:52)
[2023-10-24] MEDS: ACYCLOVIR SODIUM IV SCH (21:52)
[2023-10-24] MEDS: 0.9 % SODIUM CHLORIDE 10 ML SYRINGE IV SCH (23:22)
[2023-10-24] MEDS: ACETAMINOPHEN 650 MG/65 ML BAG IV PRN (23:33)
[2023-10-25 06:45] LABS: ALT/SGPT 14 U/L (<40); AST/SGOT 26 U/L (<40); Albumin 3.1 gm/dL (3.2-5.2); Albumin/Globulin Ratio 1.2 (1.0-2.3); Alkaline Phosphatase 58 U/L (39-117); Bilirubin,Direct < 0.2 mg/dL (0-0.3); Bilirubin,Total 0.3 mg/dL (0.1-1.0); Blood Urea Nitrogen 26 mg/dL (8-23); Calcium 8.1 mg/dL (8.6-10.4); Carbon Dioxide 26 mmol/L (22-30); Chloride 103 mmol/L (96-108); Globulin 2.6 gm/dL (2.2-3.7); Glomerular Filtration Rate 61; Glucose 80 mg/dL (70-105); Lactate Dehydrogenase 228 U/L (135-225); Phosphorous 3.5 mg/dL (2.5-4.5); Triglycerides 102 mg/dL (<150); Uric Acid 5.1 mg/dL (2.5-8.0)
[2023-10-25] MEDS ORDERED: METHOCARBAMOL 750 MG TABLET PO PRN (08:27)
[2023-10-25] MEDS ORDERED: traMADol 50 MG TABLET PO PRN (08:33)
[2023-10-25 08:45] LABS: Basophils # (Auto) 0.04 K/mcL (0.00-0.30); Basophils % (Auto) 0.7 % (0.0-2.0); Eosinophils # (Auto) 0.03 K/mcL (0.00-0.70); Eosinophils % (Auto) 0.5 % (0.0-7.0); Hematocrit 34.3 % (40.1-51.0); Hemoglobin 10.7 g/dL (13.7-17.5); Lymphocytes # (Auto) 2.49 K/mcL (1.50-4.80); Lymphocytes % (Auto) 43.5 % (15.5-49.0); Mean Cell Volume 94.5 fL (80.0-100.0); Mean Corpuscular HGB Conc 31.2 g/dL (31.0-36.0); Mean Platelet Volume 10.4 fL (8.8-12.5); Monocytes # (Auto) 0.49 K/mcL (0.10-0.90); Monocytes % (Auto) 8.6 % (1.0-12.0); Neutrophils % (Auto) 46.5 % (38.0-78.0); Platelet Count 69 K/mcL (140-440); RBC 3.63 M/mcL (4.63-6.08); Red Cell Distribution Width 14.2 % (11.5-14.5); WBC 5.7 K/mcL (4.5-11.0)
[2023-10-25] MEDS: FOLIC ACID 1 MG TABLET PO SCH (08:57)
[2023-10-25] MEDS: SERTRALINE 50 MG TABLET PO SCH (08:57)
[2023-10-25] MEDS: ATORVASTATIN 40 MG TABLET PO SCH (08:57)
[2023-10-25] MEDS: LOSARTAN 50 MG TABLET PO SCH (08:58)
[2023-10-25] MEDS: traMADol 50 MG TABLET PO PRN (08:58)
[2023-10-25] MEDS: GABAPENTIN 300 MG CAPSULE PO SCH (08:58)
[2023-10-25] MEDS: metFORMIN 500 MG TABLET PO SCH (08:58)
[2023-10-25] MEDS: MULTIVIT,THER IRON,CA,FA & MIN 1 TABLET PO SCH (08:58)
[2023-10-25] MEDS: THIAMINE 100 MG TABLET PO SCH (08:58)
[2023-10-25] MEDS: APIXABAN 2.5 MG TABLET PO SCH (08:58)
[2023-10-25] MEDS ORDERED: ENOXAPARIN 40 MG/0.4 ML SYRINGE SQ SCH (09:00)
[2023-10-25] MEDS: Fluticasone-Umeclidin-Vilanter [Trelegy Ellipta] INH SCH (09:06)
[2023-10-25 10:11] LABS: Vancomycin,Random < 4.0 ug/mL
[2023-10-25] MEDS: ACETAMINOPHEN 325 MG TABLET PO PRN (21:30)
[2023-10-26 06:17] LABS: ALT/SGPT 15 U/L (<40); AST/SGOT 25 U/L (<40); Albumin 3.3 gm/dL (3.2-5.2); Albumin/Globulin Ratio 1.2 (1.0-2.3); Alkaline Phosphatase 62 U/L (39-117); Bilirubin,Direct < 0.2 mg/dL (0-0.3); Bilirubin,Total 0.3 mg/dL (0.1-1.0); Blood Urea Nitrogen 22 mg/dL (8-23); Calcium 8.5 mg/dL (8.6-10.4); Carbon Dioxide 26 mmol/L (22-30); Chloride 104 mmol/L (96-108); Globulin 2.8 gm/dL (2.2-3.7); Glomerular Filtration Rate 68; Glucose 73 mg/dL (70-105); Lactate Dehydrogenase 231 U/L (135-225); Phosphorous 3.2 mg/dL (2.5-4.5); Triglycerides 117 mg/dL (<150); Uric Acid 5.3 mg/dL (2.5-8.0)
[2023-10-26 06:23] LABS: Basophils # (Auto) 0.05 K/mcL (0.00-0.30); Basophils % (Auto) 0.7 % (0.0-2.0); Eosinophils # (Auto) 0.11 K/mcL (0.00-0.70); Eosinophils % (Auto) 1.6 % (0.0-7.0); Hematocrit 36.3 % (40.1-51.0); Hemoglobin 11.2 g/dL (13.7-17.5); Lymphocytes # (Auto) 2.53 K/mcL (1.50-4.80); Lymphocytes % (Auto) 37.7 % (15.5-49.0); Mean Cell Volume 94.8 fL (80.0-100.0); Mean Corpuscular HGB Conc 30.9 g/dL (31.0-36.0); Mean Platelet Volume 10.5 fL (8.8-12.5); Monocytes # (Auto) 0.48 K/mcL (0.10-0.90); Monocytes % (Auto) 7.2 % (1.0-12.0); Neutrophils % (Auto) 52.7 % (38.0-78.0); Platelet Count 96 K/mcL (140-440); RBC 3.83 M/mcL (4.63-6.08); Red Cell Distribution Width 13.9 % (11.5-14.5); WBC 6.7 K/mcL (4.5-11.0)
[2023-10-26] MEDS: predniSONE 5 MG TABLET PO SCH (14:05)
[2023-10-26] MEDS: valACYclovir 500 MG TABLET PO SCH (20:31)
[2023-10-26] MEDS: MELATONIN 3 MG TABLET PO PRN (20:31)
[2023-10-27 06:20] LABS: ALT/SGPT 14 U/L (<40); AST/SGOT 22 U/L (<40); Albumin 3.3 gm/dL (3.2-5.2); Albumin/Globulin Ratio 1.2 (1.0-2.3); Alkaline Phosphatase 60 U/L (39-117); Bilirubin,Direct < 0.2 mg/dL (0-0.3); Bilirubin,Total 0.3 mg/dL (0.1-1.0); Blood Urea Nitrogen 17 mg/dL (8-23); Calcium 8.6 mg/dL (8.6-10.4); Carbon Dioxide 29 mmol/L (22-30); Chloride 103 mmol/L (96-108); Globulin 2.8 gm/dL (2.2-3.7); Glomerular Filtration Rate 68; Glucose 88 mg/dL (70-105); Lactate Dehydrogenase 222 U/L (135-225); Phosphorous 2.5 mg/dL (2.5-4.5); Triglycerides 117 mg/dL (<150); Uric Acid 5.5 mg/dL (2.5-8.0)
== END 2023-10-27 13:40 | DRG 865 ==
LOC: ED 09:04 → MEDSUR 16:40
PROVIDERS: ADMIT Internal Medicine; ATTEND Internal Medicine